=== PATIENT | female | born 1930 | race Caucasian/White ===

== ENCOUNTER 2016-04-28 16:28 | Inpatient (IN) | payer OTHER ==
[~2016-04-28] VITALS: Ht 139.7 cm; Wt 35.7 kg
--- NOTE | ~2016-04-28 | H ---
[facility] [place] [address] [place] [address] HISTORY AND PHYSICAL Name: ROHAN MURPHY Room #: 458-P [facility] IN M.R.#: [id number] Admission: 04/28/16 Attend Phys: Eliezer Adan Discharge: 04/30/16 Date of : 30 Report #: [id number] THIS REPORT FOR: //name// CC: Danyel Grigsby DATE OF SERVICE: 04/28/2016 CHIEF COMPLAINT: Shortness of breath. HISTORY OF PRESENT ILLNESS: The patient is an 85-year-old female admitted from the office with shortness of breath. She feels a sensation of inability to take a deep breath. She has had no chest pain, orthopnea, lower extremity edema, weight change, cough, congestion, sinus drainage, fever, chills. PAST MEDICAL HISTORY: Remote history of endometrial cancer treated years ago, history melanoma of the left leg, osteoporosis with lymphedema, multiple falls, hypertension, anemia. PAST SURGICAL HISTORY: She has had total hysterectomy, left elbow surgery. FAMILY HISTORY: Noncontributory. SOCIAL HISTORY: No chronic alcohol or tobacco use. ALLERGIES: None. MEDICATIONS: Coreg 6.25 mg b.i.d., potassium 10 mEq daily, Lasix 40 mg a day at morning and 20 mg at noon. REVIEW OF SYSTEMS: She denies headache, chest pain, nausea, vomiting, diarrhea, constipation, dysuria, syncope. PHYSICAL EXAMINATION: VITAL SIGNS: Temperature 36.8, pulse 75, respirations 20, blood pressure 123/73, O2 sat 99% on room air. GENERAL: She is awake and alert, in no distress. HEAD AND NECK: Unremarkable. No JVD. LUNGS: Clear. She has T-spine kyphosis. HEART: Regular, no murmur. ABDOMEN: Soft, normoactive bowel sounds. EXTREMITIES: No edema. NEUROLOGIC: Motor strength 4/5 throughout. Chest x-ray showed resolution of CHF from February; otherwise, it is clear. Basic chemistry, she had a low potassium. [address] [address] HISTORY AND PHYSICAL Name: ROHAN MURPHY Room #: 458-P [facility] IN M.R.#: [id number] Admission: 04/28/16 Attend Phys: Eliezer Adan Discharge: 04/30/16 Date of : 30 Report #: [id number] ASSESSMENT: 1. Dyspnea. 2. Hypertension. 3. Senile debility. 4. Chronic diastolic congestive heart failure. PLAN: We will take a conservative approach given her advanced age and just treat her medically. Therapy to continue with additional lab work and oxygen saturations. She may have a degree of restrictive lung disease due to her chest shape with T-spine kyphosis and just general weakness and debility. She had an echocardiogram in 2014 with an EF of 55% and mild diastolic dysfunction, so there was a degree of chronic CHF. <ELECTRONICALLY SIGNED> By: Mitul Peralta MD 05/03/16 1300 [id number] [id number] Mitul Peralta MD /stephan
[~2016-04-28 16:28] MED LIST: ACETAMINOPHEN325 M1 PO; ACTONEL 35 MG35 M1 PO; AFRIN15 ML NASAL; ASPIRIN EC81 M1 PO; BISACODYL SUPP10 MG RECTAL; CALCIUM 500 +1 EACH PO; CALCIUM CITRAT1 EA14 PO; CALCIUM PO; HYDROCODONE-AP1 EAC6 PO; IRON325 PO; KLOR-CON 1010 MEQ PO; LASIX 20 MG TAB20 MG PO; MULTIVITAMINS1 EAC7 PO; NORCO 5-325 TA1 EACH PO; NORVASC10 MG PO; ONE DAILY WOME1 EAC1 PO; SENNA PO; TRAMADOL 50 MG50 MG PO; XARELTO10 MG PO
[2016-04-28] MEDS ORDERED: LASIX 40 MG TAB40 M2 PO (18:35)
[2016-04-28] MEDS ORDERED: KLOR-CON 1010 MEQ PO (18:36)
[2016-04-28] MEDS ORDERED: LASIX 20 MG TAB20 MG PO (18:37)
[2016-04-28] MEDS ORDERED: COREG6.25 MG PO (18:38)
[2016-04-28 18:39] VITALS: BP 122/74
[2016-04-28 23:45] VITALS: BP 117/58
[2016-04-29 04:55] VITALS: BP 110/65
[2016-04-29 05:50] LABS: CALCIUM 8.3 mg/dL (8.5-10.1); CREATININE 1.2 mg/dL (0.6-1.3); POTASSIUM 3.4 mmol/L (3.5-5.1)
[2016-04-29 07:22] VITALS: BP 123/73
[2016-04-29 11:28] VITALS: BP 118/66
[2016-04-29 11:45] LABS: HEMATOCRIT 30.1 % (37.0-47.0); HEMOGLOBIN 10.1 gm/dL (12.0-15.0); MCH 30.2 pg (26.0-34.0); MCHC 33.4 g/dL (28.0-37.0); MCV 90.3 fL (80.0-100.0); RBC 3.33 mil/uL (4.20-5.00); RDW 14.9 % (10.5-14.5); WBC 6.7 thou/uL (4.0-11.0)
[2016-04-29 12:07] LABS: NT-PRO BRAIN NAT PEPTIDE 683 pg/mL (<300); TROPONIN-I < 0.04 ng/mL (<0.04-0.07)
[2016-04-29 15:22] VITALS: BP 109/53
[2016-04-29 19:34] VITALS: BP 95/65
[2016-04-30 03:13] VITALS: BP 135/58
[2016-04-30 07:12] VITALS: BP 111/76
[2016-04-30 11:24] VITALS: BP 125/71
[2016-04-30 12:08] VITALS: BP 125/71
== END 2016-04-30 12:25 | disposition home or self-care (01) | DRG 293 ==
LOC: 4W 16:28
PROVIDERS: Internal Medicine; Internal Medicine Geriatric Medicine
DX: I11.0 Hypertensive heart disease with heart failure (principal); I50.33 Acute on chronic diastolic (congestive) heart failure; R54 Age-related physical debility; M81.0 Age-related osteoporosis without current pathological fracture; Z85.820 Personal history of malignant melanoma of skin; Z85.89 Personal history of malignant neoplasm of other organs and systems; Z90.710 Acquired absence of both cervix and uterus
CPT/HCPCS: 10045

== ENCOUNTER 2016-07-08 13:31 | Inpatient (IN) | payer OTHER ==
[~2016-07-08] VITALS: Ht 134.6 cm; Wt 37.2 kg
--- NOTE | ~2016-07-08 | H ---
[facility] [address] [place] [address] HISTORY AND PHYSICAL Name: ROHAN MURPHY Room #: 535-P ADM IN M.R.#: [id number] Admission: 07/08/16 Attend Phys: Eliezer Adan Discharge: Date of : 30 Report #: [id number] THIS REPORT FOR: //name// CC: Danyel Grigsby DATE OF SERVICE: 07/08/2016 CHIEF COMPLAINT: Swelling of the left leg. HISTORY OF PRESENT ILLNESS: The patient is an 86-year-old female seen in the office yesterday for swelling. She has had edema in the lower legs before, but her left leg was out of proportion to the right leg. She was sent for a Doppler ultrasound, which revealed extensive DVT of the common femoral vein on the left side extending into the popliteal and proximal deep femoral pain. She is admitted for medical treatment. PAST MEDICAL HISTORY: Endometrial cancer treated years ago, she has had a melanoma in the left leg, osteoporosis, lymphedema, multiple falls, hypertension, and anemia. PAST SURGICAL HISTORY: Hysterectomy. FAMILY HISTORY: Noncontributory. SOCIAL HISTORY: No chronic alcohol or tobacco use. ALLERGIES: None. MEDICATIONS: Coreg, potassium, and Lasix. REVIEW OF SYSTEMS: She denies headache, chest pain, shortness of breath, abdominal pain, nausea, vomiting, diarrhea, constipation, dysuria, or syncope. OBJECTIVE: VITAL SIGNS: Temperature 36.7, pulse 82, respirations 18, blood pressure 134/70, and O2 sat 98% on room air. GENERAL: She is awake and alert, in no distress. LUNGS: Clear. HEART: Regular. ABDOMEN: Soft, normoactive bowel sounds. EXTREMITIES: There is 1+ edema in the right leg, 2 to 3+ pitting edema in the left lower calf. Distal pulses are intact. NEUROLOGIC: She is alert and oriented. ASSESSMENT: Acute deep venous thrombosis, left lower leg. [facility] [address] [place] [address] HISTORY AND PHYSICAL Name: ROHAN MURPHY Room #: 535-P ADM IN [facility].#: [id number] Admission: 07/08/16 Attend Phys: Eliezer Adan Discharge: Date of : 30 Report #: [id number] PLAN: Bed rest, monitoring, anticoagulation. <ELECTRONICALLY SIGNED> By: Mitul Peralta MD 07/09/16 1630 0916 [id number] Mitul Peralta MD /nt
--- NOTE | ~2016-07-08 | D ---
[facility] [place] [address] [place] [address] DISCHARGE SUMMARY Name: ROHAN MURPHY Room #: 535-P [facility] IN M.R.#: [id number] Admission: 07/08/16 Attend Phys: Eliezer Adan Discharge: 07/12/16 Date of : 30 Report #: [id number] THIS REPORT FOR: //name// CC: Danyel Grigsby FINAL DIAGNOSIS: Deep venous thrombosis, left lower extremity. HOSPITAL COURSE: The patient was admitted with diagnosis of DVT. She presented to the office with swelling and Doppler ultrasound revealed DVT involving the left femoral vein, extending into the popliteal. She was placed on bed rest and started with Lovenox. After 3 days, she was advanced to activity up to a chair and in the room with help. Eventually, she was switched to Eliquis with consultation of the pharmacist based on her age and creatinine clearance, we adjusted her dose to 2.5 mg twice a day. She tolerated the medicine without incident. PHYSICAL EXAMINATION: GENERAL/VITAL SIGNS: On the day of discharge, she was awake and alert with stable vital signs, resting in bed. LUNGS: Clear. HEART: Regular. ABDOMEN: Soft. EXTREMITIES: Showed no edema on the right. There is 1-2+ nonpitting edema in the left leg. 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 Again, she had no chest pain or shortness of breath. DISPOSITION: She will be discharged to home with diet and activity as tolerated, resume Lasix, potassium, along with Eliquis 2.5 mg twice a day. She will have home health for nursing and physical therapy. Lab work in a week. Follow up with Dr. Grigsby in 2 weeks. <ELECTRONICALLY SIGNED> By: Mitul Peralta MD 07/13/16 0929 [id number] [id number] Mitul Peralta MD /nt
[~2016-07-08 13:31] MED LIST changes: +COREG6.25 MG PO; +LASIX 40 MG TAB40 M2 PO
[2016-07-08] MEDS ORDERED: LASIX 20 MG TAB20 MG PO (15:16)
[2016-07-08 19:23] LABS: HEMATOCRIT 28.3 % (37.0-47.0); HEMOGLOBIN 9.5 gm/dL (12.0-15.0); MCH 30.7 pg (26.0-34.0); MCHC 33.4 g/dL (28.0-37.0); MCV 91.8 fL (80.0-100.0); RBC 3.09 mil/uL (4.20-5.00); RDW 15.3 % (10.5-14.5)
[2016-07-08 19:31] LABS: CALCIUM 8.1 mg/dL (8.5-10.1); CREATININE 1.2 mg/dL (0.6-1.0); POTASSIUM 4.2 mmol/L (3.5-5.1)
[2016-07-08 20:13] VITALS: BP 106/64
[2016-07-09 05:30] VITALS: BP 112/74
[2016-07-09 07:34] VITALS: BP 134/70
[2016-07-09 15:56] VITALS: BP 116/77
[2016-07-09 18:58] VITALS: BP 118/59
[2016-07-10 03:44] VITALS: BP 121/64
[2016-07-10 07:05] VITALS: BP 138/83
[2016-07-10 15:55] VITALS: BP 116/61
[2016-07-10 20:14] VITALS: BP 135/74
[2016-07-11 04:45] VITALS: BP 115/78
[2016-07-11 06:02] LABS: HEMATOCRIT 29.5 % (37.0-47.0); HEMOGLOBIN 9.8 gm/dL (12.0-15.0); MCH 30.6 pg (26.0-34.0); MCHC 33.2 g/dL (28.0-37.0); RBC 3.2 mil/uL (4.20-5.00); RDW 14.6 % (10.5-14.5); WBC 6.3 thou/uL (4.0-11.0)
[2016-07-11 06:26] LABS: CALCIUM 8.1 mg/dL (8.5-10.1); CREATININE 1.1 mg/dL (0.6-1.0); POTASSIUM 3.7 mmol/L (3.5-5.1)
[2016-07-11 07:22] VITALS: BP 119/61
[2016-07-11 14:44] VITALS: BP 101/71
[2016-07-11 19:40] VITALS: BP 116/67
[2016-07-12 03:45] VITALS: BP 111/66
[2016-07-12] MEDS ORDERED: ELIQUIS2.5 MG PO (07:39)
[2016-07-12 08:59] VITALS: BP 149/71
[2016-07-12 10:12] VITALS: BP 149/71
[2016-07-12 13:28] VITALS: BP 149/71
== END 2016-07-12 14:25 | disposition home health service (06) | DRG 301 ==
LOC: ULTRA 13:31 → 5S 14:37
PROVIDERS: Internal Medicine; Internal Medicine Geriatric Medicine
DX: I82.412 Acute embolism and thrombosis of left femoral vein (principal); I82.432 Acute embolism and thrombosis of left popliteal vein; M81.0 Age-related osteoporosis without current pathological fracture; I10 Essential (primary) hypertension; Z90.710 Acquired absence of both cervix and uterus; Z85.89 Personal history of malignant neoplasm of other organs and systems; Z91.81 History of falling; Z85.820 Personal history of malignant melanoma of skin
CPT/HCPCS: 10089

== ENCOUNTER 2017-09-17 12:50 | Emergency (ER) | payer OTHER ==
[~2017-09-17] VITALS: Ht 152.4 cm; Wt 43.1 kg
[~2017-09-17 12:50] MED LIST changes: +ELIQUIS2.5 MG PO
[2017-09-17] MEDS ORDERED: SENNA8.6 MG PO (15:52)
[2017-09-17] MEDS ORDERED: IBUPROFEN 400400 M2 PO (15:52)
[2017-09-17] MEDS ORDERED: NORCO 5-325 TA1 EACH PO (15:52)
== END 2017-09-17 16:12 | disposition home or self-care (01) ==
LOC: ER 12:50
DX: S49.92XA Unspecified injury of left shoulder and upper arm, initial encounter (principal); M25.511 Pain in right shoulder; R07.81 Pleurodynia; I89.0 Lymphedema, not elsewhere classified; I10 Essential (primary) hypertension; Z87.891 Personal history of nicotine dependence; Z86.718 Personal history of other venous thrombosis and embolism; Z85.42 Personal history of malignant neoplasm of other parts of uterus; Z85.820 Personal history of malignant melanoma of skin; W18.39XA Other fall on same level, initial encounter; Y92.89 Other specified places as the place of occurrence of the external cause; Y93.89 Activity, other specified; Y99.8 Other external cause status